=== PATIENT | male | born 1995 | race Caucasian/White ===

== ENCOUNTER 2024-11-11 19:08 | Emergency (ER) | payer OTHER, SELFPAY ==
[2024-11-11 19:10] VITALS: BP 136/83; PULSE 96; TEMP 36.9; O2SAT 97; BMI 32.7
--- NOTE | 2024-11-11 19:18 | PC.NURSE ---
redness and swelling to nail bed of right great toe. He states the nail was ripped off at some point a few weeks ago, he is not sure when or what happened, he has been cleansing it with soap and water at home but it is not improving. He thinks the nail will need to be removed completely to rid the infection.
--- NOTE | 2024-11-11 19:20 | ED.EXTPRO1 ---
HPI - Extremity Problem General Chief complaint: Extremity Problem, Nontraumatic Stated complaint: RIGHT BIG TOE PAIN Time Seen by Provider: 11/11/24 19:11 Source: patient Mode of arrival: walk-in Limitations: no limitations History of Present Illness HPI Narrative: The patient is a otherwise healthy 28-year-old male presenting to the emergency department with a right great toe pain. It is red. He states that the proximal portion of his nail is coming apart. The medial portion of the nail has redness and inflammation. It spread to the metacarpophalangeal area. Patient has no history of gout. Patient does have a history of having ingrown toenails in the past. He had to have his left toenail completely excised as a result in the past. He does not follow-up with a senior mortgage loan processor he has a primary medical physician. Patient denies any fever or chills. No sick contacts or recent travel. He has been dealing with the symptoms for a couple of weeks. He states is not really a lot of pain but more of a annoyance . Touching the proximal medial portion of the nail makes it worse or nothing makes it better. Related Data Home Medications ?Medication ?Instructions ?Recorded ?Confirmed atorvastatin 40 mg tablet mg 11/11/24 divalproex 250 mg tablet,delayed mg PO 11/11/24 release Previous Rx's ?Medication ?Instructions ?Recorded amoxicillin 875 mg-potassium 1 tab PO BID #20 tabs 11/11/24 clavulanate 125 mg tablet mupirocin 2 % topical ointment 1 applic topical BID #22 grams 11/11/24 Allergies Allergy/AdvReac Type Severity Reaction Status Date / Time phenytoin (From Dilantin) AdvReac Intermediate Agitated Verified 11/11/24 19:14 chlorohydrate AdvReac Intermediate Agitated Uncoded 11/11/24 19:14 Review of Systems ROS Narrative 10 Systems were reviewed, and unless noted in the HPI, all other systems are reviewed, unremarkable, or noncontributory. PFSH PFSH Social History Little interest or pleasure in doing things: not at all Feeling down, depressed, or hopeless: not at all Exam Narrative Exam Narrative: Prior to examining the patient, I have washed with hospital approved and provided Antiseptic Hand Clinical Sales Consultant and have also applied gloves.? Prior to touching the patient, I asked for consent to examine the patient.? General: Alert and oriented, well nourished, mild distress. Eye: PERRL, EOMI, normal conjunctiva. HENT: Normocephalic, normal hearing, moist oral mucosa, no scleral icterus Musculoskeletal: Normal range of motion and strength, no tenderness or swelling. Skin: Skin is warm, dry and pink, no rashes or lesions. Redness and swelling to the right great toe. The proximal portion of the nails pulling up. medial area of edema without fluctuance. Warm to the touch Neurologic: Awake, alert, and oriented X3, CN II-XII intact. Psychiatric: Cooperative, appropriate mood and affect.? Following the conclusion of the examination, I have washed my hands thoroughly after removing examination gloves. Constitutional Vital Signs, click to edit/add: Last Vital Signs Temp 98.5 F 11/11/24 19:10 Pulse 96 H 11/11/24 19:10 Resp 16 11/11/24 19:10 BP 136/83 11/11/24 19:10 Pulse Ox 97 11/11/24 19:10 O2 Del Method Room Air 11/11/24 19:10 Course Course Hospital Course: Patient had a very thorough physical exam and was educated on the care and treatment of his paronychial infection. Vital Signs Vital signs: Vital Signs Temperature 98.5 F 11/11/24 19:10 Pulse Rate 96 H 11/11/24 19:10 Respiratory Rate 16 11/11/24 19:10 Blood Pressure 136/83 11/11/24 19:10 Pulse Oximetry 97 11/11/24 19:10 Oxygen Delivery Method Room Air 11/11/24 19:10 Temperature 98.5 F 11/11/24 19:10 Pulse Rate 96 H 11/11/24 19:10 Respiratory Rate 16 11/11/24 19:10 Blood Pressure 136/83 11/11/24 19:10 Pulse Oximetry 97 11/11/24 19:10 Oxygen Delivery Method Room Air 11/11/24 19:10 MDM - Extremity (Nontraumatic) MDM Narrative Medical decision making narrative: In summary the patient is a 28-year-old male with what appears to be a paronychia infection but there is no evidence of fluctuant abscess. Patient's nail is already coming off. Patient will take antibiotics and do warm water soaks. Continue with soap and water. Patient will follow-up with his primary care physician for further evaluation and treatment and return if symptoms worsen or change. Patient will take Augmentin for antibiotic coverage. I will prescribe mupirocin for ointment. Patient should do warm water soaks 3-4 times a day for 20 minutes each time. Differential Diagnosis Differential diagnosis: Likely gout, cellulitis, lower extremity edema and other (Paronychial abscess) Medical Records Attestation: I reviewed the patient's medical records. Discharge Plan Discharge Chief Complaint: Extremity Problem, Nontraumatic Clinical Impression: Paronychia of great toe of right foot Patient Disposition: Home, Self-Care Time of Disposition Decision: 19:34 Condition: Good Mode of Transportation: Private Vehicle Prescriptions / Home Meds: New amoxicillin-pot clavulanate 875-125 mg tablet 1 tab PO BID Qty: 20 0RF mupirocin 2 % ointment 1 applic topical BID Qty: 22 0RF No Action atorvastatin 40 mg tablet divalproex 250 mg tablet,delayed release (DR/EC) PO Print Language: Vincentian Instructions: Paronychia (ED) Additional Instructions: Thank you for trusting me with your care today. Please make sure you follow-up with your primary medical physician for further evaluation and care. Referrals: Physician,Non-Staff, MD [Primary Care Provider] - 1 week Procedures ED Procedure Instructions Procedures Procedures: We did discuss the pros and cons of doing a procedure. I would need to do a digital block to remove the nail. However, the patient has a markedly erythematous foot and I strongly believe that injecting through cellulitis would not be an active proper decision. The patient does not have a lot of pain or discomfort. He is amendable to warm water soaks, antibiotics, and follow-up.
== END 2024-11-11 19:43 | disposition home or self-care (01) ==
PROVIDERS: Emergency Provider Emergency Medicine; PCP Nurse Practitioner Family
DX: L03.031 Cellulitis of right toe (principal)
CPT/HCPCS: 99283